=== PATIENT | female | born 1995 | race Caucasian/White ===

== ENCOUNTER 2023-06-02 15:20 | Emergency (ER) | payer OTHER, SELFPAY ==
[2023-06-02 15:27] VITALS: BP 172/92; PULSE 92; RESP 17; TEMP 36.9; O2SAT 98; BMI 37.8
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
== END 2023-06-02 16:30 | disposition home or self-care (01) ==
PROVIDERS: Emergency Provider Nurse Practitioner Family
DX: S16.1XXA Strain of muscle, fascia and tendon at neck level, initial encounter (principal); S46.912A Strain of unspecified muscle, fascia and tendon at shoulder and upper arm level, left arm, initial encounter; V49.40XA Driver injured in collision with unspecified motor vehicles in traffic accident, initial encounter
CPT/HCPCS: 99282